=== PATIENT | male | born 1995 | race Caucasian/White ===

== ENCOUNTER 2016-10-30 05:30 | Day surgery (SDC) | payer OTHER ==
[2016-10-29 09:35] VITALS: BMI 23.3
[~2016-10-30] VITALS: Ht 180.3 cm; Wt 83.3 kg
[2016-10-30] VITALS (14 sets, daily range): BP systolic 117–135; BP diastolic 59–81; PULSE 16–80; RESP 16–23; Ht 180.3 cm; Wt 83.3 kg
[2016-10-30] MEDS ORDERED: EPHEDrine SULFATE 50 MG/5 ML SYG ONE (07:00)
[2016-10-30] MEDS ORDERED: ROPIVACAINE 0.5 % 30 ML VIAL ONE ×2 (07:18→10:17)
[2016-10-30] MEDS ORDERED: MIDAZOLAM 1 MG/ML 2 ML INJ ONE ×2 (07:18→07:55)
--- NOTE | 2016-10-30 07:42 | HPN ---
Date/Time of Note Date/Time of Note DATE: 10/30/16 TIME: 07:42 Interval H&P Admission Note Pt. seen H&P reviewed: No system changes AYE COLINDRES MD Oct 30, 2016 07:42
[2016-10-30] MEDS ORDERED: FENTAnyl 50 MCG/ML VIAL ONE (07:54)
[2016-10-30] MEDS ORDERED: PHENYLephrine (100 MCG/ML) 5ML SYG ONE (08:05)
[2016-10-30] MEDS ORDERED: DEXAMETHASONE 4 MG/ML 1 ML INJ ONE (08:10)
[2016-10-30] MEDS ORDERED: FAMOTIDINE 20 MG INJ ONE (08:10)
[2016-10-30] MEDS ORDERED: ONDANSETRON 4 MG INJ ONE (08:10)
[2016-10-30] MEDS ORDERED: METOCLOPRAMIDE 10 MG INJ ONE (08:11)
[2016-10-30] MEDS ORDERED: POLYMYXIN/BACITRACIN 1L IRRIG ONE (08:13)
[2016-10-30] MEDS ORDERED: LIDOCAINE 2% (SDV) 5 ML INJ ONE (08:55)
[2016-10-30] MEDS ORDERED: PROPOFOL 40 ML ONE (08:55)
[2016-10-30] MEDS ORDERED: ROCURONIUM 50 MG INJ ONE (08:55)
[2016-10-30] MEDS ORDERED: SUCCINYLCHOLINE CHLORIDE 100 MG/5 ML SYG IV ONE (08:55)
[2016-10-30] MEDS ORDERED: POVIDONE IODINE 10% 28.4 GM OINT ONE (10:17)
[2016-10-30] MEDS ORDERED: NEOSTIGMINE 3 MG/3 ML SYRINGE ONE (10:33)
[2016-10-30] MEDS ORDERED: GLYCOPYRROLATE 1 MG INJ ONE (10:33)
[2016-10-30] MEDS ORDERED: DIPHENHYDRAMINE 50 MG INJ IV PRN (11:00)
[2016-10-30] MEDS ORDERED: HYDROmorphONE (0.2 MG/ML) 10ML SYG IV PRN ×3 (11:00)
[2016-10-30] MEDS ORDERED: PROCHLORPERAZINE 10 MG INJ IV PRN (11:00)
[2016-10-30] MEDS ORDERED: OXYCODONE/ACETAMINOPHEN (5/325) TAB PO PRN (11:00)
[2016-10-30] MEDS ORDERED: FENTAnyl 50 MCG/ML VIAL IV PRN ×3 (11:00)
[2016-10-30] MEDS ORDERED: MEPERIDINE 25 MG INJ IV PRN (11:00)
[2016-10-30] MEDS ORDERED: ONDANSETRON 4 MG INJ IV PRN (11:00)
--- NOTE | 2016-10-30 11:14 | QN ---
Documentation Job number: [id number] AYE COLINDRES MD Oct 30, 2016 11:14
[2016-10-30] MEDS ORDERED: morphine 10 MG INJ IV PRN (11:30)
[2016-10-30] MEDS ORDERED: morphine 2 MG INJ IV PRN (11:30)
--- NOTE | 2016-10-30 13:29 | OPR ---
DATE OF OPERATION: 10/30/2016 SURGEON: Aye Ojeda M.D. FLATWORK ASSEMBLER: DELIA Hartmann ANESTHESIA: General with popliteal block as well a local saphenous block. PREOPERATIVE DIAGNOSIS: 1. Left ankle soft tissue impingement. 2. Left ankle anterolateral instability. POSTOPERATIVE DIAGNOSES: 1. Left ankle soft tissue impingement. 2. Left ankle lateral instability. 3. Posterior tibial tendon. OPERATION PERFORMED: 1. Left ankle arthroscopy with extensive debridement. 2. Left ankle modified Brostrom Medrano reconstruction of the lateral ankle ligaments. 3. Application of platelet rich plasma to the left deltoid as well as the left lateral ankle ligaments. 4. short leg cast. TOURNIQUET TIME: 59 minutes at 250 mmHg. ANESTHESIOLOGIST: Piper Vieira COMPLICATIONS: None. CONDITION UPON END OF SURGERY: To the PACU. INDICATIONS: The patient is a 21-year-old gentleman presenting for evaluation who had a significant left ankle sprain with chronic ankle instability. Given the chronic instability and feeling of giving out, the patient was indicated for surgery. RISK NOTE: The patient was explained the risks and benefits of surgery in the patient's alturas language including, but not limited to infection, bleeding, loss of limb, loss of life, need for future surgery, risk of infection. The patient acknowledges these risks, by signing the surgical consent form. DESCRIPTION OF PROCEDURE: The patient was marked in the preoperative holding area and procedure was confirmed with both patient and consent. The patient was then brought back in the operative theater, placed supine on operative table and given preoperative anesthesia and preoperative block. The patient was given 2 grams of Ancef IV. The left side was then secured in the thigh marin. Arms were carefully padded. The left leg was then prepped and draped in the normal sterile fashion and timeout was taken. All parties in the room agreed it was correct patient and extremity and procedure. Superficial peroneal nerve was marked out. Standard anteromedial, anterolateral, and posterolateral portals were made after soft tissue distraction was placed across the joint and approximately 30 pounds of force. So using the typical anteromedial and anterolateral portals with care to avoid any injury to the neurovascular structures, a 21-point exam was completed revealing hemorrhagic synovitic nodule in the lateral gutter. There was no evidence of any scar tissue in the medial gutter, however, there was scar tissue in the lateral gutter as well, which all were thoroughly debrided. After a thorough debridement, the wound was then irrigated thoroughly and all wounds were closed with 4-0 nylon in vertical mattress fashion. The ankle was then reprepped and redraped sterilely and reprepped with Betadine with the thigh marin removed with significant care was taken to maintain sterility. Esmarch was then brought up to 250 mmHg of tourniquet pressure. Incision was made from several centimeters above the tip of the fibula to several centimeters distal towards the sinus tarsi. The incision was taken down to the subcutaneous tissue and flaps were made medially and laterally and extensor retinaculum was identified and lifted up. Incision was then made into the peroneal tendons which were identified through the sheath and no tear noted. There was mild tenosynovitis which was debrided, however. The anterior talofibular ligament was identified. A Emelina was placed underneath it and the incision was made around it, leaving a cuff at the fibula as it was released. The calcaneofibular ligament was felt to be intact at this time. The lateral gutter was debrided further and an Arthrex internal brace was first placed into the talus, followed by a 3-0 PDS placed to repair the peroneal retinaculum tear followed by 0 FiberWire placed in a [id number] fashion to reattach the remaining anterior talofibular ligament from the posterior to anterior. A final stitch was placed over the anterior aspect of the lateral gutter using a 2 -0 PDS in a [id number]-[id number] fashion. A posterior drawer was applied to the ankle and the blanket was rolled underneath the tibia to allow gravity reduced angle in neutral dorsiflexion. Sutures were then subsequently tied then sequential fashion from posterior to anterior. The internal brace was then placed into the fibula. Excellent stability was then obtained and anterior drawer was eliminated, and the ankle had normal range of motion at this time. The wounds were irrigated thoroughly and then the retinaculum was then reefed and advanced proximally in a [id number] fashion with 3-0 PDS. Wounds were again irrigated thoroughly and closed with 3-0 Monocryl followed by a 4-0 nylon in vertical mattress fashion. Platelet rich plasma was placed over the lateral ankle ligaments as well over the deltoid and posterior tibial tendon using 7% hematocrit as the designated concentration. The wounds were then dressed with 4 x 4's which were then soaked in platelet-poor plasma (PPP) and then placed into a short leg well-padded splint with 4 Web Rolls, 5 ABDs and in a bulky well -padded splint. All sponge and needle counts were correct. Dictated By: AYE FINCH/CHARLIE Conf#: [id number] DID#: [id number]
== END 2016-10-30 12:35 | disposition home or self-care (01) ==
LOC: SDS 05:30
PROVIDERS: ATTEND Orthopaedic Surgery
DX: M25.872 Other specified joint disorders, left ankle and foot (principal); M25.372 Other instability, left ankle
CPT/HCPCS: 27695; J0330; J1100; J2250; J2370; J2405; J2710; J2765; J2795; J3010; Z7512; Z7610